=== PATIENT | female | born 1960 | race Caucasian/White ===

== ENCOUNTER 2022-01-02 07:37 | Outpatient (CLI) | payer OTHER, SELFPAY | END 2022-01-02 07:38 | disposition home or self-care (01) | PROVIDERS: PCP Emergency Medicine; Visit Provider Surgery | DX: Z12.11 Encounter for screening for malignant neoplasm of colon (principal); K63.5 Polyp of colon; K64.8 Other hemorrhoids | CPT/HCPCS: 45385; 88305; 99153; J1200; J2250; J3010 ==

== ENCOUNTER 2022-01-28 18:11 | Outpatient (CLI) | payer OTHER, SELFPAY ==
--- NOTE | 2022-01-28 18:30 | CRLHL7_ITS ---
For Patients: As a result of the Century Cures Act, medical imaging exams and procedure reports are released immediately into your electronic medical record. You may view this report before your referring provider. If you have questions, please contact your health care provider. BILATERAL DIGITAL SCREENING MAMMOGRAM WITH COMPUTER-AIDED DETECTION CLINICAL HISTORY: Routine screening exam. COMPARISON: 07/26/2012. TECHNIQUE: Digital mammogram in CC and MLO projections including computer-aided detection (CAD). BREAST COMPOSITION: The breasts are heterogeneously dense, which may obscure small masses. FINDINGS: RIGHT Breast: No suspicious findings. LEFT Breast: Grouped calcifications lower inner quadrant 6 cm from the nipple. IMPRESSION: LEFT breast calcifications. RECOMMENDATIONS: Spot compression magnification views of the calcifications in the LEFT breast in CC and ML projections. The [facility] will contact the patient for follow-up. BI-RADS Category 0: Incomplete: Need additional Imaging Evaluation and/or Prior Mammograms for Comparison A lay language report of this examination will be provided to the patient. Dictated by Jose Ni MD @ 01/29/2022 8:28:16 AM jj/Dictated by: Jose Ni MD @ 01/29/2022 8:26:00 AM (Electronically Signed)
== END 2022-01-28 18:12 | disposition home or self-care (01) ==
LOC: MAMMO 18:11
PROVIDERS: PCP Emergency Medicine; Visit Provider Emergency Medicine
DX: Z12.31 Encounter for screening mammogram for malignant neoplasm of breast (principal); N63.20 Unspecified lump in the left breast, unspecified quadrant
CPT/HCPCS: 77063; 77067

== ENCOUNTER 2022-01-31 07:36 | Outpatient (CLI) | payer OTHER, SELFPAY ==
--- NOTE | 2022-01-31 07:45 | CRLHL7_ITS ---
For Patients: As a result of the Cures Act, medical imaging exams and procedure reports are released immediately into your electronic medical record. You may view this report before your referring provider. If you have questions, please contact your health care provider. DIGITAL DIAGNOSTIC LEFT MAMMOGRAM USING COMPUTER-AIDED DETECTION CLINICAL HISTORY: LEFT breast calcification. COMPARISON: 01/28/2022, 07/26/2012 . TECHNIQUE: Digital LEFT mammogram in three projections. CAD utilized. BREAST COMPOSITION: The breast is heterogeneously dense, which may obscure small masses. FINDINGS: Spot magnification CC and true lateral views LEFT breast submitted along with an open true lateral view LEFT breast. Grouped microcalcifications located within the lower inner quadrant LEFT breast 6 cm from the nipple. No layering is present. Benign vascular calcifications are present more superiorly. Some pleomorphism is present. IMPRESSION: Indeterminate grouping of calcifications within the lower inner quadrant LEFT breast 6 cm from the nipple. RECOMMENDATIONS: Stereotactic biopsy. Results and recommendations discussed with the patient. BI-RADS Category 4: Suspicious A lay language report of this examination will be provided to the patient. Dictated by Jose Ni MD @ 01/31/2022 11:45:34 AM jj/Dictated by: Jose Ni MD @ 01/31/2022 11:45:00 AM (Electronically Signed)
== END 2022-01-31 07:37 | disposition home or self-care (01) ==
LOC: MAMMO 07:37
PROVIDERS: PCP Emergency Medicine; Visit Provider Emergency Medicine
DX: R92.8 Other abnormal and inconclusive findings on diagnostic imaging of breast (principal); N63.24 Unspecified lump in the left breast, lower inner quadrant
CPT/HCPCS: 77065; G0279

== ENCOUNTER 2022-02-20 09:25 | Outpatient (CLI) | payer OTHER, SELFPAY ==
[2022-02-20 14:30] LABS: Chloride* 105 mmol/L (96-114); Potassium* 4.3 mmol/L (3.6-5.1); Sodium* 139 mmol/L (135-149)
[2022-02-20 14:33] LABS: Blood Urea Nitrogen* 16 mg/dL (7-30); Carbon Dioxide* 26 mmol/L (20-32); Creatinine* 0.8 mg/dL (0.5-1.5); Estimated Glomerular Filt Rate 84 ml/min
[2022-02-20 14:34] LABS: Calcium* 9.6 mg/dL (8.4-10.6); Glucose* 100 mg/dL (60-115)
== END 2022-02-20 09:26 | disposition home or self-care (01) ==
LOC: LKVREF 09:26
PROVIDERS: PCP Emergency Medicine; Visit Provider Emergency Medicine
DX: Z01.818 Encounter for other preprocedural examination (principal)
CPT/HCPCS: 80048

== ENCOUNTER 2022-08-21 14:56 | Outpatient (CLI) | payer OTHER, SELFPAY | END 2022-08-21 14:57 | disposition home or self-care (01) | PROVIDERS: PCP Emergency Medicine; Visit Provider Emergency Medicine | DX: Z01.818 Encounter for other preprocedural examination (principal); I10 Essential (primary) hypertension; D50.9 Iron deficiency anemia, unspecified | CPT/HCPCS: 80048 ==

== ENCOUNTER 2022-09-01 06:06 | Day surgery (SDC) | payer OTHER, SELFPAY ==
[2022-09-01] VITALS (12 sets, daily range): BP systolic 116–132; BP diastolic 57–74; PULSE 61–87; RESP 16; TEMP 36.6–36.7; O2SAT 96–100; BMI 29.6
--- NOTE | 2022-09-01 06:29 | SUR.PREOP ---
Patient provided home covid negative results to RN.
[2022-09-01] MEDS: LACTATED RINGERS 1000 ML 1,000 ML 100 ML IV (06:40)
[2022-09-01] MEDS: SODIUM CHLORIDE 0.9 % (FLUSH) 10 ML SYRINGE IVF (06:40)
--- NOTE | 2022-09-01 07:50 | W.ANESCHARGE ---
Anesthesia Charges Start Date/Time Anesthesia Start Date: 09/01/22 Anesthesia Start Time: 07:30 Stop Date/Time Anesthesia Stop Date: 09/01/22 Anesthesia Stop Time: 08:11
--- NOTE | 2022-09-01 08:05 | W.ANESCHARGE ---
Anesthesia Charges Start Date/Time Anesthesia Start Date: 09/01/22 Anesthesia Start Time: 07:30 Stop Date/Time Anesthesia Stop Date: 09/01/22 Anesthesia Stop Time: 08:11
--- NOTE | 2022-09-01 08:13 | PM.GSPRC ---
Operative Note Date of procedure: 09/01/22 Pre-op diagnosis: 1. Symptomatic enlarged internal and external hemorrhoids. Post-op diagnosis: 1. Rectal prolapse. 2. Enlarged external hemorrhoids. Type of Procedure: 1. Exam under anesthesia. Indications: 61-year-old female was seen in clinic several months ago for evaluation of hemorrhoids. Patient had enlarged hemorrhoids for many years and 15 years ago had a procedure where her hemorrhoids were ?stapled?. She states that she had relief of her symptoms for 2 years but then hemorrhoidal tissue came back. She states that the tissues present outside of her anus almost all the time. She notices blood on her stool when her bowel movements are not soft. She increased her fiber and was drinking lots of water every day. She had soft daily bowel movements. It was difficult to clean herself and she noticed blood on her pad. On clinical exam she had large redundant external hemorrhoidal tissue circumferentially with protruding internal hemorrhoidal tissue that was friable. This was noticed circumferentially. There is no evidence of acute anal fissure. Given patient's clinical symptoms and her history a 2 quadrant hemorrhoidectomy was recommended. The procedure was discussed in detail. The risks associated procedure including infection, bleeding, incontinence, and residual tissue were all discussed with the patient, and she agreed to proceed. Procedure Description: After discussing the risks and benefits of the procedure, the patient signed informed consent.? The patient was brought to the operating room. Spinal anesthesia was administered. The patient was then placed in the prone position with all pressure points padded. The operative site was then prepped and draped in the usual sterile fashion.? A time-out was then performed. External examination was performed and revealed enlarged external hemorrhoids circumferentially. There was a circumferential mucosa protruding through the anal canal. This mucosa was congested and hyperemic. Anoscopy, digital rectal exam, and external examination were done and revealed that the protruding internal tissue was rectal prolapse and not enlarged internal hemorrhoids. I was able to reduce the prolapsed mucosa but it was friable. I elected not to proceed with external hemorrhoidectomy. Lubricating gel was placed over the mucosa and procedure was then terminated. Mesh panties and a feminine pad were placed over the patient's anus. ?? The patient was then woken and transported to the recovery area in stable condition. ? The patient tolerated the procedure well. Findings: Rectal prolapse. Anesthesia: MAC and spinal Surgeon: Paz Juarez MD Estimated blood loss (mL): 1 Condition: stable Disposition: PACU
[2022-09-01] MEDS: HYDROCODONE-ACETAMIN 5-325 MG 1 TAB PO (09:28)
== END 2022-09-01 10:00 | disposition home or self-care (01) ==
PROVIDERS: PCP Emergency Medicine; Visit Provider Surgery
PROC: (CPT 45900; principal; 2022-09-01 07:30)
DX: K62.3 Rectal prolapse (principal); K64.8 Other hemorrhoids
CPT/HCPCS: 45900; 46600; 00902; A9270; J2250; J2704; J3010; J7120

== ENCOUNTER 2022-11-11 17:18 | Outpatient (CLI) | payer OTHER, SELFPAY | END 2022-11-11 17:19 | disposition home or self-care (01) | PROVIDERS: PCP Emergency Medicine; Visit Provider Emergency Medicine | DX: Z01.818 Encounter for other preprocedural examination (principal); E78.5 Hyperlipidemia, unspecified; I10 Essential (primary) hypertension; D50.9 Iron deficiency anemia, unspecified; M85.80 Other specified disorders of bone density and structure, unspecified site | CPT/HCPCS: 80053; 80061; 82306 ==

== ENCOUNTER 2023-01-27 09:30 | Outpatient (CLI) | payer OTHER, SELFPAY | END 2023-01-27 09:31 | disposition home or self-care (01) | LOC: NFLDREF 01-31 05:56 | PROVIDERS: PCP Emergency Medicine; Referring Provider Emergency Medicine; Visit Provider Emergency Medicine | DX: I10 Essential (primary) hypertension (principal) | CPT/HCPCS: 80048 ==

== ENCOUNTER 2023-12-17 08:17 | Outpatient (CLI) | payer OTHER, SELFPAY ==
--- OUTSIDE RECORDS SUMMARY | 2023-12-18 05:51 | XMS_ITS | Clinical Summary ---
Author Organization [employer] [facility] Address [place], [place] [address] Care Team Providers Care Site Physician Name Role Phone Nataly Dye MD Primary Care Provider [phone] Alia Mandujano MD Unavailable [phone] Allergies No known active allergies Medications Medication Sig Dispensed Refills Start Date End Date Status multivitamin (MVI) tablet Take 1 Tablet by mouth once daily. Active lisinopril-hydrochloro thiazide (10-12.5 mg) tablet (PRINZIDE; ZESTORETIC) Take 1 Tablet by mouth once daily. 02/05/2023 Active letrozole (FEMARA) 2.5 mg tabletIndications:Oste openia, unspecified location,Malignant neoplasm of upper-inner quadrant of left breast in female, estrogen receptor positive (HC) Take 1 Tablet (2.5 mg) by mouth once daily. 90 Tablet 3 09/07/2023 Active Active Problems Problem Noted Date Diagnosed Date Osteopenia 09/07/2023 Malignant neoplasm of breast in female, estrogen receptor positive 08/04/2022 Malignant neoplasm of upper- inner quadrant of left breast in female, estrogen receptor positive 02/14/2022 Cancer Staging:Clinical: cT0, cN0, cM0, G3, ER+, VA: Not Assessed, HER2: Not Assessed - Signed by Alia Mandujano MD on 02/14/2022 Pathologic:Stage IA(pT1, pN0, cM0, G3, ER+, VA+, HER2+) - Signed by Dasia Cooper MD on 03/26/2022 Encounters Date Type Department Care Team Description 10/30/2023 3:00 PM CDT Office Visit [facility] [place] [address] [place] [address] Janice Celis PA Follow Up 10/30/2023 2:25 PM CDT - 10/30/2023 11:59 PM CDT Hospital Encounter [facility] [place] [address] [place] [address] Visit for screening mammogram 10/30/2023 Travel from Last 3 Months Immunizations Name Administration Dates Next Due Influenza RIV4 (Age 18+ Years) PRESERV FREE 03/09 Tdap 07/09/2012 Family History Medical History Relation Name Comments Cancer-prostate Brother Pb Ambrocio Mother Fara Cancer-breast Paternal Aunt John (age 60's) dx in her 60s Cancer-colon No Family History Cancer-ovarian No Family History Relation Name Status Comments Brother Pb Mother Fara Paternal Aunt John (age 60's) Social History Tobacco Use Types Packs/Day Years Used Date Smoking Tobacco: Never Passive Smoke Exposure: Never Smokeless Tobacco: Never Tobacco Cessation:Counseling Given: Not Answered Alcohol Use Standard Drinks/Week Comments Yes 1 (1 standard drink = 0.6 oz pur e alcohol) social - maybe 1 per week Social Connections Answer Date Recorded Frequency of Communication with Friends and Fami ly Not on file 03/17/2022 Sex and Gender Information Value Date Recorded Sex Assigned at Not on file Gender Identity Not on file Sexual Orientation Not on file Obstetrics History Last Filed Vital Signs Vital Sign Reading Time Taken Comments Blood Pressure 110/76 10/30/2023 2:58 PM CDT Pulse 85 09/07/2023 9:03 AM CDT Temperature 36.1 ??C (96.9 ??F) 10/30/2023 2:58 PM CD T Respiratory Rate 16 10/30/2023 2:58 PM CDT Oxygen Saturation 97% 09/07/2023 9:03 AM CDT Inhaled Oxygen Concentration - - Weight 77.1 kg (170 lb) 10/30/2023 2:58 PM CDT Height 162.6 cm (5' 4) 10/30/2023 2:58 PM CDT Body Mass Index 29.18 10/30/2023 2:58 PM CDT Plan of Treatment Upcoming Encounters Date Type Department Care Team (Late st Contact Info) Description 03/14/2024 8:00 AM CDT Office Visit [facility] [place] [address] [place] [address] Joce Martines, [address] [address] [facility] [address] [place] [address] 03/14/2024 9:00 AM CDT Appointment [facility] [place] [address] [place] [address] Health Maintenance Due Date Last Done Comments Pneumococcal series for age 6-64 (1 of 2 - PCV) 10/26/1967 Depression screening for age 12+ 1973 HIV for age 15-65 1976 Hepatitis C screening for ag e 18-79 10/26/1979 Zoster (shingles) series for age 50+ (1 of 2) 1980 Colonoscopy through age 75 2006 Lipids for age 45-75 2006 Tetanus booster 07/09/2022 07/09/2012 COVID-19 vaccine series ( season) 2023 06/03/2023, 04/11/2022, 11/23/2021, Additional history exists Influenza for age 50-64 02/07/2024 03/29/2021 BMI (ht and wt on same day) for age 18+ 10/29/2024 10/30/2023, 02/19/2023, 11/06/2022, Additional history exists Mammogram for age 45-75 10/29/2024 10/30/2023, 10/28 Pap test for age 21-65 11/28/2024 11/28/2021, 2021 Tdap Completed 07/09/2012 Procedures Procedure Name Priority Date/Time Associated Diagnosis Comments XR MAMMO GIANNA BILAT SCREEN Routine 10/30/2023 2:43 PM CDT Visit for screening mammogram HPV THIN PREP Routine 11/28/2021 1:15 PM CDT from Last 3 Months or Most Recently Relevant to Health Maintenance Results * XR MAMMO GIANNA BILAT SCREEN (10/30/2023 2:43 PM CDT) Anatomical Region Laterality Modality BREASTS, Breast Left, Breast Right Bilateral Mammography Impressions 10/30/2023 3:56 PM CDT ??There is no radiographic evidence for malignancy. ??Recommend annual mammograms. MAMMOGRAM ASSESSMENT: ??ACR 2 Benign PATIENTS: You will also receive a letter with your examination results in an easy to read format. ??If you have questions about your results, please contact your referring provider. Narrative 10/30/2023 3:56 PM CDT For Patients: As a result of the Cures Act, medical imaging exams and procedure reports are released immediately into your electronic medical record. You may view this report before your referring provider. If you have questions, please contact your health care provider. XR MAMMO GIANNA BILAT SCREEN [[id number]] CLINICAL HISTORY: ??This is an asymptomatic 63 y.o. patient. INDICATION FOR EXAM: Mammogram Screening. TECHNIQUE: CC & MLO views were obtained. ??This study was evaluated with the assistance of Computer-Aided Detection. Breast Tomosynthesis was used in interpretation. COMPARISON FILMS: Yes 10/28/22 [facility] 01/28/22 [facility] FINDINGS: ??The breasts are heterogeneously dense, which may obscure small masses. ??No suspicious masses or microcalcifications. ??There are post treatment changes of left breast. Nataly Dye MD MAMMO * HPV HIGH RISK (11/28/2021 1:15 PM CDT) TYPE 16 Negative Negative 12/02/2021 11:09 AM CDT [facility] TYPE 18 Negative Negative 12/02/2021 11:09 AM CDT [facility] OTHER HIGH RISK TYPES Negative Negative 12/02/2021 11:09 AM CDT [facility] Other (Cervical) 11/28/2021 1:15 PM CDT 11/28/2021 6:00 PM CDT Narrative [facility] - 12/02/2021 11:09 AM CDT HPV types 16, 18, 31, 33, 35, 39, 45, 51, 52, 56, 58, 59, 66 and 68 DNA were undetectable or below the pre-set threshold. Methodology: Carisa Andrea 4800 HPV Test Nataly Dye MD MICROBIOLOGY [facility] [address] [place] [address], from Last 3 Months or Most Recently Relevant to Health Maintenance Advance Directives * Full Code (Latest Code Status on File) Date Activated Date Inactivated Comments 03/07/2022 12:05 PM 03/07/2022 5:32 PM Question Answer Comments Code Status Discussion: Reviewed Preferences Care Teams Site Physician Relationship Specialty Start Date End Date Nataly Dye MD [address] [place] [address] PCP - General Emergency Medicine 02/03/22 Alia Mandujano MD [address] [place] [address] Surgery - Oncology 02/12/22
== END 2023-12-17 08:18 | disposition home or self-care (01) ==
LOC: NFLDREF 12-18 05:49
PROVIDERS: PCP Emergency Medicine; Referring Provider Emergency Medicine; Visit Provider Emergency Medicine
DX: E78.5 Hyperlipidemia, unspecified (principal); I10 Essential (primary) hypertension; M85.80 Other specified disorders of bone density and structure, unspecified site
CPT/HCPCS: 80053; 80061; 82306

== ENCOUNTER 2023-12-31 15:17 | Emergency (ER) | payer OTHER, SELFPAY ==
[2023-12-31] VITALS (57 sets, daily range): BP systolic 98–132; BP diastolic 56–82; PULSE 54–93; RESP 12–28; TEMP 36.3; O2SAT 90–100; BMI 29.0
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
--- NOTE | 2023-12-31 15:46 | CRLHL7_ITS ---
For Patients: As a result of the Century Cures Act, medical imaging exams and procedure reports are released immediately into your electronic medical record. You may view this report before your referring provider. If you have questions, please contact your health care provider. Indication: Fall, pain Comparison: None available. Technique: Single lateral views left elbow were obtained. Findings: There is no displaced fracture or dislocation. The joint spaces are grossly preserved. No definite joint effusion. Impression: No acute osseus abnormality. Dictated by Camacho Jimenes MD @ 12/31/2023 4:47:08 PM (Electronically Signed)
--- NOTE | 2023-12-31 15:46 | CRLHL7_ITS ---
For Patients: As a result of the Century Cures Act, medical imaging exams and procedure reports are released immediately into your electronic medical record. You may view this report before your referring provider. If you have questions, please contact your health care provider. Indication: Fall, deformity Comparison: None available. Technique: 2 views left wrist were obtained. Findings: There is a markedly comminuted fracture dislocation of the distal radius and ulnar styloid process. The joint spaces are grossly preserved. There is marked soft tissue swelling. Impression: Comminuted, angulated fracture of the distal radius with associated carpal soft tissue swelling. Dictated by Camacho Jimenes MD @ 12/31/2023 4:52:56 PM (Electronically Signed)
--- OUTSIDE RECORDS SUMMARY | 2023-12-31 16:25 | XMS_ITS | Clinical Summary ---
Author Organization [facility] Address [place], [place] [address] Care Team Providers Care Therapeutic Program Worker Name Role Phone Nataly Dye MD Primary Care Provider [phone] Alia Mandujano MD Unavailable [phone] Allergies No known active allergies Medications Medication [...] Cancer Staging:Clinical: cT0, cN0, cM0, G3, ER+, VT: Not Assessed, HER2: Not Assessed - Signed by Alia Mandujano MD on 02/14/2022 Pathologic:Stage IA(pT1, pN0, cM0, G3, ER+, VT+, HER2+) - Signed by Dasia Cooper MD on 03/26/2022 Encounters Date Type Department Care Team Description 10/30/2023 3:00 PM CDT Office Visit [facility] [address] [place] [address] Janice Celis PA Follow Up 10/30/2023 2:25 PM CDT - 10/30/2023 11:59 PM CDT Hospital Encounter [facility] [address] [place] [address] Visit for screening mammogram 10/30/2023 Travel from [...] Description 03/14/2024 8:00 AM CDT Office Visit [facility] [address] [place] [address] Joce Martines, [address] [address] [facility] [address] [place] [address] 03/14/2024 9:00 AM CDT Appointment [facility] [address] [place] [address] Health Maintenance Due Date Last Done Comments [...] care provider. XR MAMMO GIANNA BILAT SCREEN [[id number]] CLINICAL HISTORY: ??This is an asymptomatic 63 y.o. patient. INDICATION FOR EXAM: Mammogram Screening. TECHNIQUE: CC & MLO views were obtained. ??This study was evaluated with the assistance of Computer-Aided Detection. Breast Tomosynthesis was used in interpretation. COMPARISON FILMS: Yes 10/28/22 [facility] 01/28/[address] [facility] FINDINGS: ??The breasts are heterogeneously dense, which may obscure small masses. ??No suspicious masses or microcalcifications. ??There are post treatment changes of left breast. Nataly Dye MD MAMMO * HPV HIGH RISK (11/28/2021 1:15 PM CDT) TYPE 16 Negative Negative 12/02/2021 11:09 AM CDT [facility] TYPE 18 Negative Negative 12/02/2021 11:09 AM CDT [facility] OTHER HIGH RISK TYPES Negative Negative 12/02/2021 11:09 AM CDT [facility] Other (Cervical) 11/28/2021 1:15 PM CDT 11/28/2021 6:00 PM CDT Narrative [facility] - 12/02/2021 11:09 AM CDT HPV types 16, 18, 31, 33, 35, 39, 45, 51, 52, 56, 58, 59, 66 and 68 DNA were undetectable or below the pre-set threshold. Methodology: Carisa Andrea 4800 HPV Test Nataly Dye MD MICROBIOLOGY [facility] [address] [place] [address], from Last 3 Months or Most Recently Relevant to Health Maintenance Advance Directives * Full Code (Latest Code Status on File) Date Activated Date Inactivated Comments 03/07/2022 12:05 PM 03/07/2022 5:32 PM Question Answer Comments Code Status Discussion: Reviewed Preferences Care Teams Therapeutic Program Worker Relationship Specialty Start Date End Date Nataly Dye MD [address] [place] [address] PCP - General Emergency Medicine 02/03/22 Alia Mandujano MD [address] [place] [address] Surgery - Oncology 02/12/22
[2023-12-31] MEDS: PROPOFOL 10 MG/ML INJ 200 MG IVP (17:35)
--- NOTE | 2023-12-31 17:51 | CRLHL7_ITS ---
For Patients: As a result of the Century Cures Act, medical imaging exams and procedure reports are released immediately into your electronic medical record. You may view this report before your referring provider. If you have questions, please contact your health care provider. Indication: Postreduction Technique: Three views left wrist Comparison: 12/31/2023 IMPRESSION: Closed reduction of the comminuted and displaced intra-articular distal radial fracture with improved alignment. Displaced ulnar styloid fracture. Overlying splint. Dictated by Jose Ni MD @ 01/01/2024 3:50:57 PM (Electronically Signed)
[2023-12-31] MEDS: fentaNYL 100 MCG/2 ML inj 25 MCG IVP (17:55)
--- NOTE | 2023-12-31 19:11 | CRLHL7_ITS ---
For Patients: As a result of the Century Cures Act, medical imaging exams and procedure reports are released immediately into your electronic medical record. You may view this report before your referring provider. If you have questions, please contact your health care provider. INDICATION: Wrist trauma after fall COMPARISON: Same-day left wrist radiographs TECHNIQUE: CT of the left wrist without intravenous contrast. FINDINGS: Acute, impacted, moderately angulated, extensively comminuted and overall moderately displaced fracture of the distal radius involving the radiocarpal articular surface where there is a 2 millimeter step-off and also involving the distal radioulnar articular surface where there is also a 2 millimeter step-off. Acute slightly comminuted [id number]-bq-ihtlvpxoav displaced fracture of the ulnar styloid process. A tiny curvilinear lucency at the radial aspect of the 1st metacarpal head which is mostly excluded from the field of view is probably a vascular channel rather than a minimally displaced fracture, but should be correlated with point tenderness on physical exam (series 6, image 47). Multiple wrist extensor compartment tendons travels adjacent to the radial fracture lines. There is extensive soft tissue swelling throughout the field of view. IMPRESSION: 1. Distal radial fracture and ulnar styloid fracture as described above. 2. A tiny curvilinear lucency at the radial aspect of the 1st metacarpal head which is mostly excluded from the field of view is probably a vascular channel rather than a minimally displaced fracture, but should be correlated with point tenderness on physical exam. 3. Multiple wrist extensor compartment tendons travels adjacent to the radial fracture lines. Correlate with physical exam to assess for entrapment. Please note that all CT scans at this facility use dose modulation, iterative reconstruction, and/or weight-based dosing when appropriate to reduce radiation dose to as low as reasonably achievable. Dictated by Adrien Lewis MD @ 12/31/2023 8:06:20 PM (Electronically Signed)
[2023-12-31] MEDS: HYDROmorphone 0.5 mg/0.5 ml inj IVP (19:21)
[2023-12-31] MEDS: ONDANSETRON 2 MG/ML inj 4 MG IVP (19:21)
== END 2023-12-31 22:29 | disposition home or self-care (01) ==
PROVIDERS: Emergency Provider Family Medicine; PCP Emergency Medicine
DX: S62.102A Fracture of unspecified carpal bone, left wrist, initial encounter for closed fracture (principal); S52.512A Displaced fracture of left radial styloid process, initial encounter for closed fracture; V19.3XXA Pedal cyclist (driver) (passenger) injured in unspecified nontraffic accident, initial encounter
CPT/HCPCS: 25605; 73070; 73110; 73200; 94761; 99156; 99284; 99291; J1170; J2405; J2704; J3010

== ENCOUNTER 2024-03-24 10:17 | Outpatient (CLI) | payer OTHER, SELFPAY ==
--- OUTSIDE RECORDS SUMMARY | 2024-03-24 10:21 | XMS_ITS | Clinical Summary ---
Author Organization [employer] Address [place], [place] [address] Care Team Providers Care Senior Medical Technologist Name Role Phone Nataly Dye MD Primary Care Provider [phone] Alia Mandujano MD Unavailable [phone] Allergies No known active allergies Medications [...] Cancer Staging:Clinical: cT0, cN0, cM0, G3, ER+, CT: Not Assessed, HER2: Not Assessed - Signed by Alia Mandujano MD on 02/14/2022 Pathologic:Stage IA(pT1, pN0, cM0, G3, ER+, CT+, HER2+) - Signed by Dasia Cooper MD on 03/26/2022 Encounters Date Type Department Care Team Description 03/21/2024 1:09 PM CDT - 03/21/2024 11:59 PM CDT Hospital Encounter [facility] [address] [place] [address] Enmanuel Clements MD Malignant neoplasm of upper-inner quadrant of left breast in female, estrogen receptor positive (HC) (Primary Dx); Osteopenia, unspecified location 03/21/2024 11:00 AM CDT Office Visit [facility] [address] [address] Kevin Hoang MD Follow Up 03/21/2024 Travel 03/18/2024 2:00 PM CDT Orders Only [facility] [address] [place] [phone] Lab, Appv Lab 03/18/2024 Travel 03/17/2024 Telephone [facility] [address] [address] Sarah Medrano RN 03/17/2024 Hospital/[facility] Telephone Encounter [facility] [address] [place] [address] Meaghan Perdue RN Pre Procedure (PVP) 03/10/2024 Hospital/[facility] Telephone Encounter [facility] [address], [place] [address] Meaghan Perdue RN Pre Procedure (PVP) 03/09/2024 Travel 02/05/2024 Telephone [facility] [address] [address] Farideh Crowe RN from Last 3 Months Immunizations Name Administration Dates Next Due Influenza RIV4 (Age 18+ Years) PRESERV FREE 03/09 Tdap 07/09/2012 Family History Medical History Relation Name Comments Cancer-prostate Brother Pb Diabetes Mother Fara Cancer-breast Paternal Aunt John (age [...] oz pur e alcohol) social - maybe 2-3 per week Sex and Gender Information Value Date Recorded Sex Assigned at Not on file Gender Identity Not on file Sexual Orientation Not on file Obstetrics History Last Filed Vital Signs Vital Sign Reading Time Taken Comments Blood Pressure 127/61 03/21/2024 11:02 AM CDT Pulse 95 03/21/2024 11:02 AM CDT Temperature 36.1 ??C (97 ??F) 03/21/2024 11:02 AM CDT Respiratory Rate 16 03/21/2024 11:02 AM CDT Oxygen Saturation 98% 03/21/2024 11:02 AM CDT Inhaled Oxygen Concentration - - Weight 77.8 kg (171 lb 8 oz) 03/21/2024 11:02 AM CDT Height 162.6 cm (5' 4) 10/30/2023 2:58 PM CDT Body Mass Index 29.44 10/30/2023 2:58 PM CDT Plan of Treatment Upcoming Encounters Date Type Department Care Team (Late st Contact Info) Description 04/25/2024 10:00 AM PUBLIC AREA ATTENDANT Ancillary Procedure [facility] [address] [place] [phone] 09/19/2024 10:00 AM CDT Office Visit [facility] [address] [address] Kevin Hoang MD [address] [address] 11/01/2024 11:00 AM CDT Appointment [facility] [address] [address] Health Maintenance Due Date Last Done Comments Pneumococcal series for age 6-64 (1 of 2 - PCV) 10/26/1967 Depression screening for age 12+ 1973 HIV for age 15-65 1976 Hepatitis C screening for ag e 18-79 10/26/1979 Zoster (shingles) series for age 50+ (1 of 2) 1980 Colonoscopy through age 75 2006 Lipids for age 45-75 2006 Tetanus booster 07/09/2022 07/09/2012 Influenza for age 50-64 02/07/2024 03/29/2021 COVID-19 vaccine series ( season) 2024 03/17/2024, 06/03/2023, 04/11/2022, Additional history exists BMI (ht and wt on same day) for age 18+ 10/29/2024 10/30/2023, 02/19/2023, 11/06/2022, Additional history exists Mammogram for age 45-75 10/29/2024 10/30/2023, 10/28 Pap test for age 21-65 11/28/2024 11/28/2021, 2021 Tdap Completed 07/09/2012 Procedures Procedure Name Priority Date/Time Associated Diagnosis Comments CALCIUM Routine 03/18/2024 2:17 PM CDT Malignant neoplasm of upper-inner quadrant of left breast in female, estrogen receptor positive (HC) Osteopenia, unspecified location Malignant neoplasm of breast in female, estrogen receptor positive, unspecified laterality, unspecified site of breast (HC) CREATININE Routine 03/18/2024 2:17 PM CDT Malignant neoplasm of upper-inner quadrant of left breast in female, estrogen receptor positive (HC) Osteopenia, unspecified location Malignant neoplasm of breast in female, estrogen receptor positive, unspecified laterality, unspecified site of breast (HC) XR MAMMO GIANNA BILAT SCREEN Routine 10/30/2023 2:43 PM CDT Visit for screening mammogram HPV HIGH RISK Routine 11/28/2021 1:15 PM CDT from Last 3 Months or Most Recently Relevant to Health Maintenance Results * CREATININE (03/18/2024 2:17 PM CDT) CREATININE 0.84 0.50 - 1.05 mg/dL [facility] EGFR 79 > OR = 60 mL/min/1.73 m2 [facility] Blood BLOOD SPECIMEN / Unknown 03/18/2024 2:17 PM CDT 03/18/2024 2:23 PM CDT Enmanuel Clements MD CHEMISTRY jslyhl [facility] [address] [place] [address], [facility] [address] [place] [address] * CALCIUM (03/18/2024 2:17 PM CDT) CALCIUM 9.8 8.6 - 10.4 mg/dL [facility] Blood BLOOD SPECIMEN / Unknown 03/18/2024 2:17 PM CDT 03/18/2024 2:23 PM CDT Enmanuel Clements MD CHEMISTRY jslyhl [facility] [address] [place] [address], [employer] [facility] [address] [place] [address] * XR MAMMO GIANNA BILAT SCREEN (10/30/2023 [...] For Patients: As a result of the Century Cures Act, medical imaging exams and procedure reports are released immediately into your electronic medical record. You may view this report before your referring provider. If you have questions, please contact your health care provider. XR MAMMO GIANNA BILAT SCREEN [[id number]] CLINICAL HISTORY: ??This is an asymptomatic 63 y.o. patient. INDICATION FOR EXAM: Mammogram Screening. TECHNIQUE: CC & MLO views were obtained. ??This study was evaluated with the assistance of Computer-Aided Detection. Breast Tomosynthesis was used in interpretation. COMPARISON FILMS: Yes 10/28/22 [facility] 01/28/22 [facility] FINDINGS: ??The breasts are heterogeneously dense, which may obscure small masses. ??No suspicious masses or microcalcifications. ??There are post treatment changes of left breast. Nataly Dye MD MAMMO * HPV HIGH RISK (11/28/2021 1:15 PM CDT) TYPE 16 Negative Negative 12/02/2021 11:09 AM CDT [facility] TYPE 18 Negative Negative 12/02/2021 11:09 AM CDT [facility] OTHER HIGH RISK TYPES Negative Negative 12/02/2021 11:09 AM CDT [facility] Other (Cervical) 11/28/2021 1:15 PM CDT 11/28/2021 6:00 PM CDT Narrative [facility] - 12/02/2021 11:09 AM CDT HPV types 16, 18, 31, 33, 35, 39, 45, 51, 52, 56, 58, 59, 66 and 68 DNA were undetectable or below the pre-set threshold. Methodology: MEDEM Andrea 4800 HPV Test Nataly Dye MD [facility]BIOLOGY [facility] [address] [place] [address], [place] from Last 3 Months or Most Recently Relevant to Health Maintenance Advance Directives * Full Code (Latest Code Status on File) Date Activated Date Inactivated Comments 03/07/2022 12:05 PM 03/07/2022 5:32 PM Question Answer Comments Code Status Discussion: Reviewed Preferences Care Teams Senior Medical Technologist Relationship Specialty Start Date End Date Nataly Dye MD [address] [place] [address] PCP - General Emergency Medicine 02/03/22 Alia Mandujano MD [address] [place] [address] Surgery - Oncology 02/12/22
== END 2024-03-24 10:18 | disposition home or self-care (01) ==
LOC: LKVREF 10:18
PROVIDERS: PCP Emergency Medicine; Visit Provider Emergency Medicine
DX: Z01.818 Encounter for other preprocedural examination (principal)
CPT/HCPCS: 80048

== ENCOUNTER 2024-12-26 08:06 | Outpatient (CLI) | payer OTHER, SELFPAY | END 2024-12-26 08:07 | disposition home or self-care (01) | LOC: NFLDREF 17:28 | PROVIDERS: PCP Emergency Medicine; Referring Provider Emergency Medicine; Visit Provider Emergency Medicine | DX: E78.2 Mixed hyperlipidemia (principal); I10 Essential (primary) hypertension; M85.80 Other specified disorders of bone density and structure, unspecified site | CPT/HCPCS: 80048; 80061; 82306 ==